=== PATIENT | female | born 1925 | race Caucasian/White ===

== ENCOUNTER 2016-07-21 05:46 | Emergency (ER) | payer MEDICARE, BC, MEDICAID ==
[2016-07-21 06:07] VITALS: BP 131/96
--- NOTE | 2016-07-21 07:10 | EDM.PDOC ---
<Cirilo [place] - Last Filed: 07/21/16 07:14> ED HISTORY OF PRESENT ILLNESS - General Chief Complaint: Cardiovascular Problem Stated Complaint: [facility] Time Seen by Provider: 07/21/16 06:30 Source: Reports: Patient, EMS, Family History Limitations: Reports: No limitations - History of Present Illness INITIAL COMMENTS - FREE TEXT/NARRATIVE: This lady arrived by EMS with the complaint of rapid heart rate. She does have a history of atrial fibrillation. She had 2 episodes this morning of 1 about 2 AM and then the other one shortly before 911 was called. These episodes just last a couple of minutes. She says even now she feels a little fluttering said her chest. She never had any chest pain. There's been no shortness of breath. She said it's been a long time since she's had any - Related Data Allergies/ADRs: Allergies Allergy/AdvReac Type Severity Reaction Status Date / Time amoxicillin [Amoxicillin] Allergy Rash Verified 07/21/16 06:07 Sulfa (Sulfonamide Allergy Rash Verified 07/21/16 06:07 Antibiotics) Home Meds: Home Meds Biotin [Biotin-D] 10,000 mcg PO DAILY 02/23/13 [History] Estrogens, Conjugated [Premarin] 0.625 mg VAG ASDIRECTED PRN 02/23/13 [History] Levothyroxine 75 mcg PO DAILY 02/23/13 [History] Liothyronine Sodium 5 mcg PO DAILY 02/23/13 [History] Montelukast Sodium 10 mg PO DAILY 02/23/13 [History] Omeprazole 40 mg PO DAILY 02/23/13 [History] Oxybutynin [Oxytrol 3.9 MG/DAY] 3.9 mg TOP Q72H 02/23/13 [History] Saxagliptin [Onglyza] 2.5 mg PO DAILY 02/23/13 [History] fentaNYL [Duragesic] 1 patch TD Q72H 02/23/13 [History] Cholecalciferol (Vitamin D3) [Cholecalciferol] 2,000 mg PO DAILY 04/30/13 [ History] Multivitamin [Multivitamins] 1 cap PO DAILY 04/30/13 [History] Metoprolol Tartrate [Lopressor] 25 mg PO BID #180 tablet 05/03/13 [Rx] Warfarin Sodium 2.5 mg PO ASDIRECTED 12/10/13 [History] Furosemide [Lasix] 20 mg PO DAILY 06/28/14 [History] Aspirin [Halfprin] 324 mg PO DAILY 06/29/14 [History] Cetirizine [ZyrTEC] 10 mg PO DAILY PRN 06/29/14 [History] Ferrous Gluconate [Iron] 240 mg PO DAILY 06/29/14 [History] Lutein [Natural Lutein] 20 mg PO DAILY 06/29/14 [History] Simvastatin [Zocor] 20 mg PO BEDTIME 06/29/14 [History] Insulin Glarg,Human.Rec.Analog [Lantus Solostar] 25 units SQ DAILY 07/08/15 [ History] Warfarin [Coumadin] 1.25 mg PO ASDIRECTED 07/08/15 [History] Past Medical History - Past Health History Medical/Surgical History: Denies Medical/Surgical History HEENT History: Reports: Allergic rhinitis, Hard of hearing Cardiovascular History: Reports: Arrhythmia, High cholesterol, Hypertension, Other (see below) Other Cardiovascular History: hx afib 1978 Respiratory History: Reports: COPD Gastrointestinal History: Reports: [employer] History: Reports: , Prolapsed uterus Musculoskeletal History: Reports: Osteoarthritis, Other (see below) Other Musculoskeletal History: hip fx with pins Neurological History: Reports: Alzheimers disease, TIA Endocrine/Metabolic History: Reports: Diabetes, type II, Obesity/BMI 30+ Hematologic History: Reports: Iron deficiency - Infectious Disease History Infectious Disease History: Reports: Chicken pox, Measles, Pertussis (whooping cough) - Past Surgical History HEENT Surgical History: Reports: Cataract surgery, Tonsillectomy Cardiovascular Surgical History: Reports: Coronary artery bypass GI Surgical History: Reports: Colonoscopy, EGD Female Surgical History: Reports: Hysterectomy Neurological Surgical History: Reports: Other (see below) Other Neurological Surgeries/Procedures: lft leg dysfunction post stroke & spinal stenosis. Social & Family History - Tobacco Use Smoking Status *Q: Never Smoker Second Hand Smoke Exposure: No - Caffeine Use Caffeine Use: Reports: Coffee, Energy drinks, Soda, Tea - Alcohol Use Days Per Week of Alcohol Use: 0 - Recreational Drug Use Recreational Drug Use: No Drug Use in Last 12 Months: No - Living Situation & Occupation Living situation: Reports: Occupation: retired (lives in Apartment building [address] from hospital. has Life Alert. lives alone, Son close by, another live in [place], [place] and [facility]. She is originally is from the [facility] ED ROS GENERAL - Review of Systems Review Of Systems: See Below Constitutional: Reports: no symptoms HEENT: Reports: No symptoms Respiratory: Reports: no symptoms Cardiovascular: Reports: Palpitations Endocrine: Reports: no symptoms GI/Abdominal: Reports: No symptoms : Reports: no symptoms ED EXAM, GENERAL - Physical Exam Exam: See Below Exam Limited By: No limitations General Appearance: alert, WD/WN, no apparent distress Eye Exam: bilateral eye: normal inspection Throat/Mouth: Normal oropharynx Head: atraumatic Neck: normal inspection Respiratory/Chest: lungs clear Cardiovascular: regular rate, rhythm, other (Fairly common PACs and an occasional PVC) Peripheral Pulses: 2+: radial (L), radial (R) GI/Abdominal: soft, non tender Back Exam: normal inspection Extremities: normal inspection Neurological: alert, oriented Psychiatric: normal affect Skin Exam: Warm, Dry Course - Vital Signs Last Recorded V/S: Last Vital Signs Temp 97.5 F 07/21/16 06:06 Pulse 84 07/21/16 06:06 Resp 16 07/21/16 06:06 BP 131/96 H 07/21/16 06:06 Pulse Ox 98 07/21/16 06:06 - Orders/Labs/Meds Orders: Active Orders 24 hr Category Date Time Status EKG Documentation Completion [RC] ASDIRECTED Care 07/21/16 06:17 Active EKG 12 Lead [EK] Urgent Ther 07/21/16 06:17 Ordered Labs: Laboratory Tests 07/21/16 07/21/16 07/21/16 Range/Units 06:24 06:24 07:13 WBC 8.9 (4.5-11.0) K/uL RBC 4.61 (3.30-5.50) M/uL Hgb 14.1 (12.0-15.0) g/dL Hct 42.8 (36.0-48.0) % MCV 93 (80-98) fL MCH 31 (27-31) pg MCHC 33 (32-36) % Plt Count 190 (150-400) K/uL Neut % (Auto) 72 H (36-66) % Lymph % (Auto) 18 L (24-44) % Clinch % (Auto) 6 (2-6) % Eos % (Auto) 2 (2-4) % Baso % (Auto) 1 (0-1) % Sodium 140 (140-148) mmol/L Potassium 3.4 L (3.6-5.2) mmol/L Chloride 102 (100-108) mmol/L Carbon Dioxide 26 (21-32) mmol/L Anion Gap 15.4 H (5.0-14.0) mmol/L BUN 21 H (7-18) mg/dL Creatinine 1.4 H (0.6-1.0) mg/dL Est Cr Clr Drug Dosing 21.55 mL/min Estimated GFR (MDRD) 35 L (>60) Glucose 163 H (74-106) mg/dL Calcium 8.7 (8.5-10.1) mg/dL Free T4 1.12 (0.76-1.46) ng/dL TSH, Ultra Sensitive 1.702 (0.358-3.740) uIU/mL Urine Color Urine Appearance Urine pH (4.5-8.0) Ur Specific [place] (1.008-1.030) Urine Protein (NEGATIVE) mg/dL Urine Glucose (UA) (NEGATIVE) mg/dL Urine Ketones (NEGATIVE) mg/dL Urine Occult Blood (NEGATIVE) Urine Nitrite (NEGATIVE) Urine Bilirubin (NEGATIVE) Urine Urobilinogen (NORMAL) mg/dL Ur Leukocyte Esterase (NEGATIVE) Urine RBC (0-5) Urine WBC (0-5) Ur Epithelial Cells Amorphous Sediment Urine Bacteria Urine Mucus 07/21/16 Range/Units 08:04 WBC (4.5-11.0) K/uL RBC (3.30-5.50) M/uL Hgb (12.0-15.0) g/dL Hct (36.0-48.0) % MCV (80-98) fL MCH (27-31) pg MCHC (32-36) % Plt Count (150-400) K/uL Neut % (Auto) (36-66) % Lymph % (Auto) (24-44) % Clinch % (Auto) (2-6) % Eos % (Auto) (2-4) % Baso % (Auto) (0-1) % Sodium (140-148) mmol/L Potassium (3.6-5.2) mmol/L Chloride (100-108) mmol/L Carbon Dioxide (21-32) mmol/L Anion Gap (5.0-14.0) mmol/L BUN (7-18) mg/dL Creatinine (0.6-1.0) mg/dL Est Cr Clr Drug Dosing mL/min Estimated GFR (MDRD) (>60) Glucose (74-106) mg/dL Calcium (8.5-10.1) mg/dL Free T4 (0.76-1.46) ng/dL TSH, Ultra Sensitive (0.358-3.740) uIU/mL Urine Color Yellow Urine Appearance Clear Urine pH 6.0 (4.5-8.0) Ur Specific [place] 1.015 (1.008-1.030) Urine Protein Negative (NEGATIVE) mg/dL Urine Glucose (UA) Normal (NEGATIVE) mg/dL Urine Ketones Negative (NEGATIVE) mg/dL Urine Occult Blood Moderate (NEGATIVE) Urine Nitrite Negative (NEGATIVE) Urine Bilirubin Negative (NEGATIVE) Urine Urobilinogen Normal (NORMAL) mg/dL Ur Leukocyte Esterase Negative (NEGATIVE) Urine RBC 10-20 H (0-5) Urine WBC 0-5 (0-5) Ur Epithelial Cells Few Amorphous Sediment Not seen Urine Bacteria Not seen Urine Mucus Not seen - Re-Assessments/Exams Free Text/Narrative Re-Assessment/Exam: 07/21/16 07:09 Or EKG shows a sinus rhythm at 73 beats per minute there very frequent PACs no ST or T changes 07/21/16 07:[address] cannon [place] 0710 Departure - Departure Disposition: Home, Self-Care 01 Clinical Impression: Palpitations Forms: ED Department Discharge Additional Instructions: Continue with your current medications, Please followup with your primary care provider in 3-5 days if not better, please call return to the emergency department with worsening of symptoms. <YahairarStefan - Last Filed: 07/21/16 08:43> Course - Re-Assessments/Exams Free Text/Narrative Re-Assessment/Exam: Over care from Dr. East, observation on monitor she never demonstrated any tachycardia return of blood work was all within normal limits as well as urinalysis 07/21/16 08:41 Departure - Departure Time of Disposition: 08:43 Condition: good - Assessment/Plan Plan: Assessment Acuity = acute Site and laterality = palpitations consultation patient with known history of atrial fibrillation Etiology = unclear etiology probably related to A. fib non- Manifestations = [pneumonia manifestations dyspnea, hypoxia, cough] Location of injury = home Lab values = CBC, BMP, TSH all within normal limits urinalysis unremarkable except for hematuria which is probably related to catheterization, EKG demonstrates atrial fibrillation Plan I did review lab work results with her as well as EKG findings discussed the possibility of a Holter monitor she is to follow up with her primary care in the next 3-5 days for reevaluation Patient was in agreement with the plan all questions were answered, they were instructed to return to the emergency department or call for worsening symptoms. This note was dictated using [employer] voice recognition software please call with any questions.
== END 2016-07-21 09:07 | disposition home or self-care (01) ==
LOC: JP.ED 05:46
DX: R00.2 Palpitations (principal); I10 Essential (primary) hypertension; E78.00 Pure hypercholesterolemia, unspecified; J44.9 Chronic obstructive pulmonary disease, unspecified; K21.9 Gastro-esophageal reflux disease without esophagitis; E11.9 Type 2 diabetes mellitus without complications; E66.9 Obesity, unspecified; Z98.49 Cataract extraction status, unspecified eye; Z90.710 Acquired absence of both cervix and uterus; Z98.890 Other specified postprocedural states; Z79.82 Long term (current) use of aspirin; Z79.01 Long term (current) use of anticoagulants; Z79.899 Other long term (current) drug therapy; Z88.1 Allergy status to other antibiotic agents; Z88.2 Allergy status to sulfonamides
CPT/HCPCS: 36415; 80048; 81001; 84439; 84443; 85025; 93005; 93010; 99283; 99284-25